=== PATIENT | female | born 1935 | race Caucasian/White ===

== ENCOUNTER 2016-05-08 16:30 | Emergency (ER) | payer MEDICARE ==
[~2016-05-08 16:30] MED LIST: AMLO-39 PO; ASPI81TA2 PO; FISH PO; MEMA5TAB2 PO; MET15; MULT-892 PO; SYN75 PO; VITE PO
[2016-05-08 16:57] VITALS: BP 152/72; PULSE 78; RESP 16; O2SAT 98
--- NOTE | 2016-05-08 17:34 | ED.REPORT ---
HPI-Trauma Minor / Fall Date of Service May 08, 2016 ED Provider: Mart Medley MD Pt is an 81 y/o female w/ a hx of dementia presenting to the ED via EMS due to GLF onset prior to arrival. She states that "her feet went out from underneath her" causing her to fall. Her chief complaint is right hip pain with associated low back pain. She remembers the fall and does not believe she injured her head. Pt denies syncope, change LOC, WALLACE, neck pain, CP, abdominal pain, SOB, fever, chills. Nursing Notes Stated Complaint: GROUND LEVEL FALL Chief Complaint: Multiple Trauma/Fall Nursing Notes Reviewed: Yes Allergies: Coded Allergies: Codeine (Verified Allergy, Unknown, 12/10/10) Scheduled AmLODIPine-Expunged Drug, Do Not Renew! (AmLODIPine-Expunged Drug, Do Not Renew! ) 5 Mg Tablet 5 MG PO DAILY Aspirin-Expunged Drug, Do Not Renew! (Aspirin-Expunged Drug, Do Not Renew!) 81 Mg Tablet 162 MG PO DAILY Fish Oil-Expunged Drug, Do Not Renew! (Fish Oil-Expunged Drug, Do Not Renew!) Cap PO DAILY Levothyroxine-Expunged Drug, Do Not Renew! (Synthroid-Expunged Drug, Do Not Renew!) 75 Mcg Tablet 75 MCG PO DAILY Memantine Hcl-Expunged Drug, Do Not Renew! (Namenda-Expunged Drug, Do Not Renew! ) 5 Mg Tablet 5 MG PO DAILY Multivitamin (Daily Value) 1 Each Tablet 1 EACH PO DAILY Psyllium-Expunged Drug, Choose New Med! (Metamucil Packet-Expunged Drug, Choose New) 1 Ea Pack DAILY Tocopherol-Expunged Drug, Do Not Renew! (Vitamin E-Expunged Drug, Do Not Renew! ) 400 Unit Cap 400 UNIT PO DAILY General Time Seen by MD: 17:33 Chief Complaint Unknown reason for fall Hx Obtained From: Patient, EMS Arrived By: Ambulance Onset Occurred: Just prior to arrival Symptom Duration: Since onset Location: Hip right Quality: Painful Severity: Current: Moderate Severity: Maximum: Moderate Exacerbated by: Movement Relieved by: Rest Past Medical History Past Medical History Dementia Hypothyroid Hypertension Hx diverticulitis Hx UTI Arthritis Low back and neck pain Depression Anxiety Past Surgical History Hysterectomy Partial thyroidectomy Smoking History Never Smoker Social History Alcohol Use: "Social" Ambulatory Status Independent Review of Systems Constitutional: Denies: Chills, Fever Respiratory: Denies: Non-productive cough, Shortness of breath Musculoskeletal: Reports: Back pain, Joint pain, Denies: Neck pain Neurologic: Denies: Change LOC, Focal weakness, Headache, Numbness, Syncope, Weakness Complete sys rev & neg: except as marked. Cardiovascular: Denies: Chest pain, Dyspnea on exertion, Syncope GI: Denies: Abdominal pain, Nausea, Vomiting Physical Exam Initial Vital Signs Vital Signs (First) Date Time Temp Pulse Resp B/P Pulse Ox O2 Delivery O2 Flow Rate FiO2 05/08/16 16:57 36.3 78 16 152/72 98 Room Air Initial VS: Reviewed, Vital signs normal Head / Eyes: Atraumatic, Normocephalic, PERRL ENT: Mucous membranes moist, Conjunctiva normal, No scleral icterus Respiratory: Breath sounds normal, Clear to auscultation, No respiratory distress Cardiovascular: Regular rate & rhythm, Heart sounds normal, Intact distal pulses Abdomen / GI: Soft, Non-tender, No distention Skin: Warm, Dry, No cyanosis Neurologic: Alert, Oriented, Nonfocal Psychiatric: Mood/affect normal, Behavior normal, Normal thought content General/Constitutional: Awake, Alert, No acute distress, Cooperative, Not toxic appearing Neck: Atraumatic, Supple, No meningismus, Full range of motion, Non-tender, No midline vertebral tend Back: Full range of motion Midline lower lumbar spine tenderness Lower Extremity / Pelvis / MS: No deformity, Neurologic intact, Vascular intact , No compartment syndrome, No circumferential injury, No edema Tender over right hip. Pain with passive movement of right leg. No shortening or external rotation Re-Eval/Medical Decision Source of Hx: EMS Counseled Regarding: Diagnosis, Lab results, Need for follow-up, When/why to return to ED Discharge & Departure Shift Change Sign-Out Patient Care Transferred: Yes Discussed Complaint(s): Yes Laboratory Evaluation: Ordered, not yet done Disposition: Home Discharge Condition All VS Reviewed: Yes Condition: Stable Referrals: Guero Ogden MD (PCP) Scribe Attestation Portions of this note were transcribed by Derick Washington. I, Dr. Medley personally performed the history, physical exam and medical decision-making; I reviewed and confirmed the accuracy of the information in the transcribed note. Signed by Nancy Quinonez, 05/08/16 - 1800 copies to: Guero Ogden MD, Donald L MD May 08, 2016 17:34 DERICK WASHINGTON May 08, 2016 17:42
[2016-05-08] MEDS ORDERED: HYDROcodone-APAP 5-325 mg Tablet PO ONE (17:40)
--- NOTE | 2016-05-08 18:17 | DRSVH ---
PROCEDURE: X-RAY PELVIS W/LAT HIP (RT) ([id number]) INDICATIONS: fall Right hip and back pain TECHNIQUE: AP pelvis with lateral view(s) of the right hip(s). COMPARISON: None. FINDINGS: Bones: No fractures or dislocations. Pelvic ring appears intact. No suspicious bony lesions. Soft tissues: The visualized bowel gas pattern is normal. No suspicious soft tissue calcifications. IMPRESSION: No acute radiographic findings. If pain persists, consider cross-sectional imaging or fo llowup plain film imaging in 5-7 days is recommended to exclude occult fracture. Dictated by: Sonya Ellis M.D. on 05/08/2016 at 18:14 Approved by: Sonya Ellis M.D. on 05/08/2016 at 18:15
--- NOTE | 2016-05-08 18:33 | DRSVH ---
PROCEDURE: X-RAY LUMBAR SPINE, 2 OR 3 VIEW INDICATIONS: fall RIGHT hip and back pain TECHNIQUE: 3 views of the lumbar spine were acquired. COMPARISON: [facility], CR, XR LUMBAR SPINE 2 OR 3VW, 11/24/2014, 13:08. FINDINGS: Bones: 50 [id number] vertebrae are present. There is normal bony alignment. No vertebral body compression fractures. No suspicious bony lesions. Severe degenerative changes are redemonstrated L 4-5 similar in extent to the study dated 11/24/14. There is severe facet sclerosis throughout the lumb ar spine as before. Soft tissues: Overlying bowel gas pattern is normal. No suspicious soft tissue calcifications. Mil d atheromatous calcifications are visualized within the aorta. IMPRESSION: Degenerative change similar extent to the study from 2014. No acute wedge compression def ormities. Dictated by: Sonya Ellis M.D. on 05/08/2016 at 18:30 Approved by: Sonya Ellis M.D. on 05/08/2016 at 18:31
[2016-05-08 19:30] VITALS: BP 154/80; PULSE 83; RESP 20; O2SAT 96
--- NOTE | 2016-05-08 20:31 | DRSVH ---
PROCEDURE: CT HIP RIGHT W/O CONTRAST ([id number]) INDICATIONS: fall, pain with rotation TECHNIQUE: Noncontrast 3 mm axial sections acquired through the bony pelvis. Additional 3 mm axial sections acq uired through the symptomatic hip joint, with coronal and sagittal reformats. COMPARISON: [facility], CR, XR PELVIS W LATERAL HIP RT, 05/08/2016, 17:52. FINDINGS: Image quality: Excellent. Bones: There is a minimally displaced fracture through the right acetabular rim in the region of a sm all osteophyte (series 3, image 75). No other fracture or dislocation. There is mild bilateral hip ilda int space narrowing consistent with mild osteoarthritis. Soft tissues: No intramuscular hematoma. Visualized portions of the bowel demonstrate normal course a nd caliber. The bladder is fluid-filled and thin-walled. IMPRESSION: 1. Small right acetabular fracture likely through a small acetabular osteophyte. No other fracture or dislocation. Dictated by: Sonya Ellis M.D. on 05/08/2016 at 20:24 Approved by: Sonya Ellis M.D. on 05/08/2016 at 20:29
[2016-05-08 20:38] VITALS: BP 154/80; PULSE 83; RESP 20; O2SAT 96
== END 2016-05-08 20:38 | disposition home or self-care (01) ==
LOC: SED 16:30 → EDBD 16:30 → EDUNIT# 16:30 → SED 20:38
DX: S70.01XA Contusion of right hip, initial encounter (principal); W18.30XA Fall on same level, unspecified, initial encounter; Y93.89 Activity, other specified; Y92.89 Other specified places as the place of occurrence of the external cause; Y99.8 Other external cause status; M54.5 Low back pain; I10 Essential (primary) hypertension; E03.9 Hypothyroidism, unspecified; F03.90 Unspecified dementia, unspecified severity, without behavioral disturbance, psychotic disturbance, mood disturbance, and anxiety; Z88.5 Allergy status to narcotic agent